=== PATIENT | male | born 1985 | race Caucasian/White ===

== ENCOUNTER 2016-11-25 11:22 | Emergency (ER) | payer SELFPAY ==
[~2016-11-25] VITALS: Ht 180.3 cm; Wt 63.5 kg
[2016-11-25] MEDS ORDERED: SODIUM CHLORIDE FLUSH 10ML SYR IVF ONE (12:30)
[2016-11-25 12:35] LABS: BLOOD UREA NITROGEN 12 mg/dL (7-18)
[2016-11-25 13:58] VITALS: BP 147/89
== END 2016-11-25 14:20 | disposition home or self-care (01) ==
LOC: ED 12:51
DX: R20.9 Unspecified disturbances of skin sensation (principal); B18.2 Chronic viral hepatitis C
CPT/HCPCS: 36415; 70551; 80048; 82040; 85025; 93005